=== PATIENT | female | born 1995 | race African-American/Black ===

== ENCOUNTER 2017-10-29 23:10 | Emergency (ER) | payer SELFPAY ==
[~2017-10-29] VITALS: Ht 170.2 cm; Wt 89.5 kg
[2017-10-29 23:15] VITALS: BP 137/70; PULSE 102; RESP 17; TEMP 98.3; O2SAT 100
[2017-10-29 23:36] VITALS: BP 119/69; PULSE 84; RESP 18; O2SAT 98
--- NOTE | 2017-10-29 23:42 | PD ---
HPI Chief Complaint: Headache Time Seen by Provider: 23:41 Travel History International Travel<30 days: No Contact w/Intl Traveler<30days: No Traveled to known affect area: No History of Present Illness HPI Patient comes in complaining of some associated nausea, discoloration to her urine, frequency, urgency, and some painful urination as well. Patient also states that she has been having unprotected intercourse and that she may also be . While she was telling me about all these different symptoms the patient did state that she also also been having on and off mild headaches are not affecting her vision, not associated with fevers, not associated with any neck pain or neck stiffness, also not associated with any chest pain/flank pain/ back pain/abdominal pain/vaginal bleeding/vaginal discharge/runny nose/cough/ sore throat. States allergy to amoxicillin Past medical history significant for only marijuana use PFSH Past Medical History Medical History: Denies Significant Hx Tetanus Vaccination: Unknown ?: Unknown LMP: unknown Past Surgical History Surgical History: No Previous Surgery Social History Alcohol Use: No Tobacco Use: No Substance Use: Yes (marijuana) Allergies-Medications (Allergen,Severity, Reaction): Coded Allergies: amoxicillin (Verified Allergy, Unknown, 10/29/17) Reported Meds & Prescriptions Reported Meds & Active Scripts Active No Active Prescriptions or Reported Medications Review of Systems General / Constitutional: No: Fever Eyes: No: Visual changes HENT: Positive: Headaches Cardiovascular: No: Chest Pain or Discomfort Respiratory: No: Shortness of Breath Gastrointestinal: Positive: Nausea, No: Abdominal Pain Genitourinary: Positive: Urgency, Frequency, Dysuria, Hematuria Musculoskeletal: No: Pain Skin: No Rash Neurologic: No: Weakness Psychiatric: No: Depression Endocrine: No: Polydipsia Hematologic/Lymphatic: No: Easy Bruising Physical Exam Narrative GENERAL: SKIN: Warm and dry. HEAD: Atraumatic. Normocephalic. EYES: Pupils equal and round. No scleral icterus. No injection or drainage. ENT: No nasal bleeding or discharge. Mucous membranes pink and moist. NECK: Trachea midline. No JVD. CARDIOVASCULAR: Regular rate and rhythm. RESPIRATORY: No accessory muscle use. Clear to auscultation. Breath sounds equal bilaterally. GASTROINTESTINAL: Abdomen soft, non-tender, nondistended. MUSCULOSKELETAL: Extremities without clubbing, cyanosis, or edema. No obvious deformities. NEUROLOGICAL: Awake and alert. No obvious cranial nerve deficits. Motor grossly within normal limits. Five out of 5 muscle strength in the arms and legs. Normal speech. PSYCHIATRIC: Appropriate mood and affect; insight and judgment normal. Data Data Last Documented VS Vital Signs Date Time Temp Pulse Resp B/P (MAP) Pulse Ox O2 Delivery O2 Flow Rate FiO2 10/29/17 23:36 84 18 119/69 (86) 98 Room Air 10/29/17 23:15 98.3 Orders Orders Ed Urine Pregnancytest Poc (10/29/17 23:43) Urinalysis - C+S If Indicated (10/29/17 23:48) Ondansetron Odt (Zofran Odt) (10/30/17 00:00) Urine Culture (10/29/17 23:54) Nitrofurantoin Monohyd Macrocr (Macrobid (10/30/17 00:30) Labs Laboratory Tests Test 10/29/17 23:54 Urine Color DARK-YELLOW Urine Turbidity HAZY Urine pH 6.0 Urine Specific Rebuck 1.025 Urine Protein 30 mg/dL Urine Glucose (UA) NEG mg/dL Urine Ketones 10 mg/dL Urine Occult Blood NEG Urine Nitrite NEG Urine Bilirubin NEG Urine Urobilinogen 8.0 MG/DL Urine Leukocyte Esterase LARGE Urine RBC 11 /hpf Urine WBC 13 /hpf Urine Squamous Epithelial Cells 22 /hpf Urine Calcium Oxalate Crystals RARE /hpf Urine Bacteria OCC /hpf Urine Mucus FEW /lpf Microscopic Urinalysis Comment CULTURE INDICATED MDM Medical Decision Making Medical Screen Exam Complete: Yes Emergency Medical Condition: Yes Medical Record Reviewed: Yes Differential Diagnosis UTI versus versus vaginitis versus tension headache versus metabolic headache Narrative Course Clinically the patient did not have any photophobia, had no evidence of any neurological findings, GCS is 15, negative Brudzinski's and negative Kernig sign. Patient's test was positive at the bedside UA consistent with a UTI Due to the patient's and lack of any neurological findings risks versus benefit ratio is is not in our favor, the patient will be treated with antibiotic, given a few doses of Zofran and referred to [facility] for further evaluation and follow-up of her which is newly diagnosed. Diagnosis Primary Impression: newly diagnosed Additional Impression: UTI Referrals: [facility] FOR FURTHER CARE OF YOUR Patient Instructions: First Trimester (ED), General Instructions, Urinary Tract Infection in Women (DC) Scripts Ondansetron Odt (Zofran Odt) 4 Mg Tab 4 MG SL Q6HR Y for Nausea/Vomiting, #12 TAB 0 Refills Prov: Yohannes Hernandez MD 10/30/17 Nitrofurantoin Monohydrate Macrocrystals (Macrobid) 100 Mg Capsule 100 MG PO BID for Infection for 10 Days, #20 CAP 0 Refills Prov: Yohannes Hernandez MD 10/30/17 Disposition: 01 DISCHARGE HOME Condition: Stable Yohannes Hernandez MD October 29, 2017 23:42
[2017-10-30] MEDS ORDERED: ONDANSETRON ODT 4 MG TAB PO ONE
[2017-10-30 00:13] LABS: BACTERIA, URINE OCC /hpf; BLOOD, URINE NEG (NEG); CALCIUM OXALATE CRYSTALS,URINE RARE /hpf; GLUCOSE,URINE NEG (NEG); KETONE, URINE 10 mg/dL (NEG); MUCUS URINE FEW /lpf (OCC); NITRITE,URINE NEG (NEG); SQUAMOUS EPITHELIAL CELL URINE 22 /hpf (0-5); URINE COLOR DARK-YELLOW (YELLW/STRAW); URINE LEUKOCYTE ESTERASE LARGE (NEG)
[2017-10-30 00:16] LABS: BILIRUBIN, URINE NEG (NEG)
[2017-10-30] MEDS ORDERED: NITROFURANTOIN MONOHYD MACROCR 100 MG CAP PO ONE (00:30)
[2017-10-30] MEDS ORDERED: MACR100C2 PO (00:47)
[2017-10-30] MEDS ORDERED: ZOFR4TAB3 SL (00:47)
== END 2017-10-30 01:16 | disposition home or self-care (01) ==
LOC: NEPC 23:10
DX: O23.40 Unspecified infection of urinary tract in pregnancy, unspecified trimester (principal); Z3A.00 Weeks of gestation of pregnancy not specified
CPT/HCPCS: 81001; 84703; 87086; 99284

== ENCOUNTER 2017-11-29 15:34 | Emergency (ER) | payer OTHER ==
[~2017-11-29] VITALS: Ht 175.3 cm; Wt 99.0 kg
[~2017-11-29 15:34] MED LIST: MACR100C2 PO; ZOFR4TAB3 SL
[2017-11-29] MEDS ORDERED: SODIUM CHLOR 0.9% 1000 ML INJ 1,000 ML IV ONE (15:40)
--- NOTE | 2017-11-29 15:40 | PD ---
HPI Chief Complaint: Nausea and vomiting and abdominal pain, severe headache, 1 month . Time Seen by Provider: 15:40 Travel History International Travel<30 days: No Contact w/Intl Traveler<30days: No History of Present Illness HPI 22-year-old -[place] female brought in by ambulance with reports of 1 month known , with nausea, vomiting, abdominal pain, and severe headache since last night. Patient states her last menstrual period was August 09. Patient denies fever, chills, or other symptoms. Patient has no history of migraines or headaches in the past. Patient denies any vaginal bleeding or discharge. She denies dysuria. Abdominal pain is rated as a 7 out of 10. Headache is 10 out of 10. Patient is unable to keep anything down since last night. She has no chest pain or shortness of breath. She is allergic to amoxicillin. Patient was noted to have a blood sugar of 54 in the rig, and she was given 1 amp of glucose with a recurrent blood sugar of 250 recorded by EMS. [facility] Social History Alcohol Use: No Tobacco Use: No Substance Use: Yes (marijuana) Allergies-Medications (Allergen,Severity, Reaction): Coded Allergies: amoxicillin (Verified Allergy, Unknown, 11/29/17) Reported Meds & Prescriptions Reported Meds & Active Scripts Active No Active Prescriptions or Reported Medications Review of Systems Except as stated in HPI: all other systems reviewed are Neg General / Constitutional: No: Fever, Chills Eyes: No: Visual changes HENT: Positive: Headaches, No: Vertigo, Lightheadedness, Sore Throat, Rhinitis , Rhinorrhea, Congestion, Nosebleed, Neck Stiffness, Neck Pain, Dental Difficulties, Earache Cardiovascular: No: Chest Pain or Discomfort Respiratory: No: Shortness of Breath Gastrointestinal: Positive: Nausea, Vomiting, Abdominal Pain, No: Diarrhea Genitourinary: No: Urgency, Frequency, Dysuria, Decreased Urinary Output, Pelvic Pain, Flank Pain, Vaginal Bleeding Musculoskeletal: No: Pain Skin: No Rash Neurologic: No: Weakness Psychiatric: No: Depression Endocrine: No: Polydipsia Hematologic/Lymphatic: No: Easy Bruising Physical Exam Narrative GENERAL: Patient appears in moderate to severe distress. Patient is visibly tearful. SKIN: Warm and dry. Normal color. Normal turgor HEAD: Atraumatic. Normocephalic. Nontender with palpation. EYES: Pupils equal and round. No scleral icterus. No injection or drainage. ENT: No nasal bleeding or discharge. Mucous membranes pink and moist. Pharynx is clear. Airways patent. NECK: Trachea midline. No JVD. Supple nontender. CARDIOVASCULAR: Regular rate and rhythm. RESPIRATORY: No accessory muscle use. Clear to auscultation. Breath sounds equal bilaterally. GASTROINTESTINAL: Abdomen soft, diffusely tender without specific point tenderness or rebound, nondistended. Hepatic and splenic margins not palpable. MUSCULOSKELETAL: Extremities without clubbing, cyanosis, or edema. No obvious deformities. NEUROLOGICAL: Awake and alert. No obvious cranial nerve deficits. Motor grossly within normal limits. Five out of 5 muscle strength in the arms and legs. Normal speech. PSYCHIATRIC: Appropriate mood and affect; insight and judgment normal. Data Data Last Documented VS Vital Signs Date Time Temp Pulse Resp B/P (MAP) Pulse Ox O2 Delivery O2 Flow Rate FiO2 11/29/17 15:46 98.0 68 30 139/97 (111) 100 Room Air Orders Orders Beta Hcg (Quant/Titer) (11/29/17 15:40) Complete Blood Count With Diff (11/29/17 15:40) Comprehensive Metabolic Panel (11/29/17 15:40) Complete Rh (11/29/17 15:40) Urinalysis - C+S If Indicated (11/29/17 15:40) Iv Access Insert/Monitor (11/29/17 15:40) Ecg Monitoring (11/29/17 15:40) Sodium Chloride 0.9% Flush (Ns Flush) (11/29/17 15:45) Sodium Chlor 0.9% 1000 Ml Inj (Ns 1000 M (11/29/17 15:40) Ondansetron Odt (Zofran Odt) (11/29/17 15:45) Prothrombin Time / Inr (Pt) (11/29/17 15:40) Act Partial Throm Time (Ptt) (11/29/17 15:40) Ct Brain W/O Iv Contrast(Rout) (11/29/17 15:40) Diphenhydramine Inj (Benadryl Inj) (11/29/17 15:45) Metoclopramide Inj (Reglan Inj) (11/29/17 15:45) Morphine Inj (Morphine Inj) (11/29/17 15:45) Labs Laboratory Tests Test 11/29/17 15:45 11/29/17 19:45 White Blood Count 6.2 TH/MM3 Red Blood Count 3.91 MIL/MM3 Hemoglobin 12.0 GM/DL Hematocrit 34.4 % Mean Corpuscular Volume 88.0 FL Mean Corpuscular Hemoglobin 30.6 PG Mean Corpuscular Hemoglobin Concent 34.8 % Red Cell Distribution Width 13.1 % Platelet Count 202 TH/MM3 Mean Platelet Volume 8.8 FL Neutrophils (%) (Auto) 66.5 % Lymphocytes (%) (Auto) 26.6 % Monocytes (%) (Auto) 5.0 % Eosinophils (%) (Auto) 1.1 % Basophils (%) (Auto) 0.8 % Neutrophils # (Auto) 4.1 TH/MM3 Lymphocytes # (Auto) 1.6 TH/MM3 Monocytes # (Auto) 0.3 TH/MM3 Eosinophils # (Auto) 0.1 TH/MM3 Basophils # (Auto) 0.1 TH/MM3 CBC Comment DIFF FINAL Differential Comment Prothrombin Time 11.0 SEC Prothromb Time International Ratio 1.1 RATIO Activated Partial Thromboplast Time 28.7 SEC Blood Urea Nitrogen 6 MG/DL Creatinine 0.64 MG/DL Random Glucose 151 MG/DL Total Protein 7.3 GM/DL Albumin 3.4 GM/DL Calcium Level 9.0 MG/DL Alkaline Phosphatase 49 U/L Aspartate Amino Transf (AST/SGOT) 13 U/L Alanine Aminotransferase (ALT/SGPT) 20 U/L Total Bilirubin 0.2 MG/DL Sodium Level 136 MEQ/L Potassium Level 3.4 MEQ/L Chloride Level 103 MEQ/L Carbon Dioxide Level 19.5 MEQ/L Anion Gap 14 MEQ/L Estimat Glomerular Filtration Rate 139 ML/MIN Human Chorionic Gonadotropin, Quant 72267 MIU/ML Urine Color Straw Urine Turbidity CLEAR Urine pH 7.0 Urine Specific Thurston 1.003 Urine Protein NEG mg/dL Urine Glucose (UA) 50 mg/dL Urine Ketones TRACE mg/dL Urine Occult Blood NEG Urine Nitrite NEG Urine Bilirubin NEG Urine Urobilinogen LESS THAN 2 mg/dL Urine Leukocyte Esterase NEG Urine WBC LESS THAN 1 /hpf Urine Squamous Epithelial Cells 2 /hpf Microscopic Urinalysis Comment CULT NOT INDICATED MDM Medical Decision Making Medical Screen Exam Complete: Yes Emergency Medical Condition: Yes Differential Diagnosis Migraine. Intracranial bleed. Abdominal pain. Ectopic . Nausea and vomiting. Dehydration. Narrative Course Patient is in pain but appears to be medically stable at time of exam. IV access is obtained, and labs are ordered including CBC, CMP, beta hCG coagulation studies and urinalysis. Medications are ordered including 10 mg Reglan IV, 4 mg morphine IV, 4 mg Zofran p.o., 50 mg diphenhydramine IV. Patient is given a bolus of 1000 mL of normal saline. Ultrasound of the pelvis is ordered to rule out ectopic CT of the brain is ordered as the patient reports worst headache of her life. CBC is unremarkable. History show potassium 3.4, carbon dioxide is 19.5, BUN is 6, creatinine is normal 0.64 glucose is 151 [place] [address]. Ultrasound showed intrauterine estimated to be 14 weeks 1 day. Patient stated that her pain did not improve with the above treatment, therefore CT of the head is ordered to rule out intracranial bleed. Patient is shielded. CT is unremarkable for acute process. Urinalysis is unremarkable. Patient is felt stable for discharge home. Patient will be given Zofran 4 mg every 6 hours as needed #20. Patient can take Tylenol as well as needed. Patient should rest, push fluids, and follow-up with local OB as soon as possible. Diagnosis Primary Impression: Qualified Codes: Z3A.14 - 14 weeks gestation of Additional Impressions: Nausea and vomiting during Headache Qualified Codes: R51 - Headache Referrals: [facility] Head Patient Instructions: General Instructions Additional Instructions: CBC is unremarkable. History show potassium 3.4, carbon dioxide is 19.5, BUN is 6, creatinine is normal 0.64 glucose is 151 [place] [address]. Ultrasound showed intrauterine estimated to be 14 weeks 1 day. Patient stated that her pain did not improve with the above treatment, therefore CT of the head is ordered to rule out intracranial bleed. Patient is shielded. CT is unremarkable for acute process. Urinalysis is unremarkable. Patient is felt stable for discharge home. Patient will be given Zofran 4 mg every 6 hours as needed #20. Patient can take Tylenol as well as needed. Patient should rest, push fluids, and follow-up with local OB as soon as possible. Med/Other Pt SpecificInfo: Prescription(s) given Scripts No Active Prescriptions or Reported Meds Disposition: DISCHARGE HOME Condition: Stable Anthony Portillo Nov 29, 2017 15:40
[2017-11-29] MEDS ORDERED: MORPHINE SULFATE 4 MG/ML INJ IV PUSH ONE (15:45)
[2017-11-29] MEDS ORDERED: diphenhydrAMINE HCL 50 MG/ML VIAL IVP ONE (15:45)
[2017-11-29] MEDS ORDERED: SODIUM CHLORIDE 0.9% FLUSH 10 ML FLUSH IVF PRN (15:45)
[2017-11-29] MEDS ORDERED: METOCLOPRAMIDE HCL 10 MG/2 ML VIAL IVP ONE (15:45)
[2017-11-29] MEDS ORDERED: ONDANSETRON ODT 4 MG TAB PO ONE (15:45)
[2017-11-29 15:46] VITALS: BP 139/97; PULSE 68; RESP 30; TEMP 98; O2SAT 100
[2017-11-29 16:04] LABS: AUTOMATED NEUTROPHIL # 4.1 TH/MM3 (1.8-7.7); BASOPHIL # 0.1 TH/MM3 (0-0.2); BASOPHIL % 0.8 % (0.0-2.0); EOSINOPHIL # 0.1 TH/MM3 (0-0.4); EOSINOPHIL % 1.1 % (0.0-4.0); HEMATOCRIT 34.4 % (35.0-46.0); LYMPH % 26.6 % (9.0-44.0); LYMPHOCYTE # 1.6 TH/MM3 (1.0-4.8); MEAN CORPUSCULAR HEMOGLOBIN 30.6 PG (27.0-34.0); MEAN CORPUSCULAR HGB CONC 34.8 % (32.0-36.0); MEAN PLATELET VOLUME 8.8 FL (7.0-11.0); MONOCYTE # 0.3 TH/MM3 (0-0.9); NEUT % 66.5 % (16.0-70.0); PLATELET COUNT 202 TH/MM3 (150-450); RED BLOOD COUNT 3.91 MIL/MM3 (4.00-5.30); RED CELL DISTRIBUTION WIDTH 13.1 % (11.6-17.2); WHITE BLOOD COUNT 6.2 TH/MM3 (4.0-11.0)
[2017-11-29 16:18] LABS: INTERNATIONAL NORMALIZED RATIO 1.1 RATIO
[2017-11-29 16:20] LABS: ALBUMIN 3.4 GM/DL (3.4-5.0); ALT (GPT) 20 U/L (10-53); AST (GOT) 13 U/L (15-37); BICARBONATE 19.5 MEQ/L (21.0-32.0); BLOOD UREA NITROGEN 6 MG/DL (7-18); CHLORIDE 103 MEQ/L (98-107); CREATININE 0.64 MG/DL (0.50-1.00); GLOMERULAR FILTRATION RATE 139 ML/MIN (>89); GLUCOSE,RANDOM 151 MG/DL (74-106); SODIUM (NA) 136 MEQ/L (136-145)
[2017-11-29 16:37] LABS: ALKALINE PHOSPHATASE 49 U/L (45-117); TOTAL BILIRUBIN ADULT 0.2 MG/DL (0.2-1.0); TOTAL PROTEIN 7.3 GM/DL (6.4-8.2)
--- NOTE | 2017-11-29 19:09 | RADRPT ---
EXAM DATE: 11/29/2017 6:45 PM EDT AGE/SEX: 22 years / Female INDICATIONS: Severe headache CLINICAL DATA: This is the patient's initial encounter. Patient reports that signs and symptoms have been present for 1 day and indicates a pain score of 8/10. MEDICAL/SURGICAL HISTORY: None. None. RADIATION DOSE: 38.52 CTDI (mGy) COMPARISON: No prior exams available for comparison. TECHNIQUE: CT of the head without contrast. Using automated exposure control and adjustment of the mA and/or kV according to patient size, radiation dose was kept as low as reasonably achievable to ob tain optimal diagnostic quality images. DICOM format image data is available electronically for revi ew and comparison. FINDINGS: Cerebrum: The ventricles are normal. No midline shift, mass lesion, hemorrhage or acute infarction. No extraaxial fluid collections are seen. Posterior Fossa: The cerebellum and brainstem demonstrate no acute abnormality. The 4th ventricle is midline. The cerebellopontine angle is within normal limits. Extracranial: The visualized sinuses are clear. Skull: The calvaria is intact. No skull fracture. CONCLUSION: 1. Negative noncontrast head CT. Electronically signed by: Troy Arellano MD 11/29/2017 7:08 PM EDT
[2017-11-29 20:11] LABS: BILIRUBIN, URINE NEG (NEG); BLOOD, URINE NEG (NEG); GLUCOSE,URINE 50 mg/dL (NEG); KETONE, URINE TRACE mg/dL (NEG); NITRITE,URINE NEG (NEG); SQUAMOUS EPITHELIAL CELL URINE 2 /hpf (0-5); URINE COLOR Straw (YELLW/STRAW); URINE LEUKOCYTE ESTERASE NEG (NEG)
[2017-11-29] MEDS ORDERED: ZOFR4TAB PO (20:16)
== END 2017-11-29 20:30 | disposition home or self-care (01) ==
LOC: NEPC 15:34
DX: O21.9 Vomiting of pregnancy, unspecified (principal); O26.892 Other specified pregnancy related conditions, second trimester; R51 Headache; R10.9 Unspecified abdominal pain; Z3A.14 14 weeks gestation of pregnancy
CPT/HCPCS: 70450; 80053; 81001; 84702; 85025; 85610; 85730; 86901; 96361; 96374; 96375; 99285; J1200; J2270; J2765; J7030

== ENCOUNTER 2018-05-03 13:51 | Inpatient (IN) ==
--- NOTE | 2018-05-03 14:21 | P.HPOB ---
History of Present Illness Primary Care Physician: No Primary Care Physician Chief Complaint: induction History of Present Illness: 23yo at 38/1 weeks gestation presenting for induction due to IUGR. She has no complaints. No contractions, no vaginal bleeding, no LOF, she is feeling the baby move. PMH none PSH D&C Meds None Allergies Amoxicillin- facial swelling Social hx Lives with her mother Baby will be adopted by another family Denies alcohol, tobacco, or illicit drug use Weeks Gestation:: 38 - Inpatient Certification I certify that the inpatient services were ordered in accordance with Medicare regulations governing the order. This includes certification that hospital inpatient services are reasonable and necessary and in the case of services not specified as inpatient-only under 42 CFR 419.22(n), that they are appropriately provided as inpatient services in accordance to with the 2-midnight benchmark under 43 CFR 412.3(e) Review of Systems Constitutional: Denies chills, Denies fever(s) Cardiovascular: Denies chest pain Respiratory: Denies shortness of breath Gastrointestinal: Denies abdominal pain Genitourinary: Denies abnormal vaginal bleeding PMFSH - History History Provided By: Patient - Tobacco History Smoking Status: Never smoker - Alcohol History How Often Do You Have a Drink Containing Alcohol: Never - Substance Use History Substance History: Active Abuse (MJ) - Travel History History of Recent Travel: No Medications and Allergies Allergies Allergy/AdvReac Type Severity Reaction Status Date / Time amoxicillin Allergy Unknown Verified 11/29/17 15:41 Exam Narrative: GENERAL: Well-nourished, well-developed patient. SKIN: Warm and dry. HEAD: Normocephalic and atraumatic. EYES: No scleral icterus. No injection or drainage. ENT: No nasal drainage noted. Mucous membranes pink. Airway patent. NECK: Supple, trachea midline. No JVD. CARDIOVASCULAR: Regular rate and rhythm without murmurs, gallops, or rubs. RESPIRATORY: Breath sounds equal bilaterally. No accessory muscle use. ABDOMEN/GI: Abdomen soft, non-tender, bowel sounds present, no rebound, no guarding Gravid GENITOURINARY: External Genitalia: intact and normal in appearance Cervix: posterior Dilatation: 1 Effacement: 50 Station: -2 Presentation: vertex Membranes: intact Uterine Contractions: none FHT's: Category: 2 Baseline: 140s Reactive: yes Variability: moderate Decels: some variable decelerations EXTREMITIES: No cyanosis or edema. BACK: Nontender without obvious deformity. No CVA tenderness. NEUROLOGICAL: Awake and alert. Motor and sensory grossly within normal limits. Five out of 5 muscle strength in all muscle groups. Normal speech. Results - Labs CBC & Chem 7: 05/03/18 15:00 Caprini VTE Risk Assessment Caprin VTE Risk Assessment: Moderate/High Risk (score >= 2) Caprini Risk Assessment Model: Point Value = 1 Point Value = 2 Point Value = 3 Point Value = 5 Age 41-60 Minor surgery BMI > 25 kg/m2 Swollen legs Varicose veins or History of unexplained or recurrent spontaneous Oral contraceptives or hormone replacement Sepsis (< 1 month) Serious lung disease, including pneumonia (< 1 month) Abnormal pulmonary function Acute myocardial infarction Congestive heart failure (< 1 month) History of inflammatory bowel disease Medical patient at bed rest Age 61-74 Arthroscopic surgery Major open surgery (> 45 min) Laparoscopic surgery (> 45 min) Malignancy Confined to bed (> 72 hours) Immobilizing plaster cast Central venous access Age >= 75 History of VTE Family history of VTE Factor V Leiden Prothrombin [id number] Lupus anticoagulant Anticardiolipin antibodies Elevated serum homocysteine Heparin-induced thrombocytopenia Other congenital or acquired thrombophilia Stroke (< 1 month) Elective arthroplasty Hip, pelvis, or leg fracture Acute spinal cord injury (< 1 month) Prophylaxis Regimen: Total Risk Factor Score Risk Level Prophylaxis Regimen 0-1 Low Early ambulation 2 Moderate Order ONE of the following: *Sequential Compression Device (SCD) *Heparin 5000 units SQ BID 3-4 Higher Order ONE of the following medications: *Heparin 5000 units SQ TID *Enoxaparin/Lovenox 40 mg SQ daily (WT < 150 kg, CrCl > 30 mL/min) *Enoxaparin/Lovenox 30 mg SQ daily (WT < 150 kg, CrCl > 10-29 mL/min) *Enoxaparin/Lovenox 30 mg SQ BID (WT < 150 kg, CrCl > 30 mL/min) AND/OR *Sequential Compression Device (SCD) 5 or more Highest Order ONE of the following medications: *Heparin 5000 units SQ TID (Preferred with Epidurals) *Enoxaparin/Lovenox 40 mg SQ daily (WT < 150 kg, CrCl > 30 mL/min) *Enoxaparin/Lovenox 30 mg SQ daily (WT < 150 kg, CrCl > 10-29 mL/min) *Enoxaparin/Lovenox 30 mg SQ BID (WT < 150 kg, CrCl > 30 mL/min) AND *Sequential Compression Device (SCD) Assessment and Plan - Diagnosis (1) Encounter for induction of labor Code(s): Z34.90 - Encounter for supervision of normal , unspecified, unspecified trimester Status: Acute Plan: 23yo at 38/1 weeks gestation being induced for IUGR as recommended by MFM. FHT: Category 2 with good variability, variable decelerations seen on monitor, will reposition patient and reassess for improvement -spoke with pt's nurse and the concerning findings on the FHT were while pt was sitting up signing her consents -FHT is now Category 1 and reassuring Cervix: 1cm/50%/-2 Cervidil for induction, due pt not tolerating cervical exams. WDW Dr. Castillo - Plan Per MFM report on 05/02, IOL now recommended at 39wks for IUGR with efw 6% at 35wks (04/14) and Normal MCA flow and Umbilical artery flow on 05/02. Patient advised that delivery no longer recommended at 38wks per MFM report from 05/02. Plan for IOL next Wednesday night at 39wks unless otherwise indicated per MFM. Case discussed with OB hospitalist fire investigation lieutenant who agrees with plan. RNST today, + moment, Neg ctx. Patient will see Dr. Horn on Wednesday at the clinic for a routine visit, cont. 2x/wk AP testing with MFM until delivery. -Corinne Castillo M.D. (faculty)
[2018-05-03] MEDS ORDERED: Oxytocin 30 Units/500ml Premix 30 UNITS/500 ML BAG IV.SIG ONE (14:22)
[2018-05-03] MEDS ORDERED: fentaNYL Citrate Inj 100 MCG/2 ML Ampul IV.PUSH PRN ×2 (14:22)
[2018-05-03] MEDS ORDERED: Naloxone Inj 0.4 MG/ML Vial IV.PUSH PRN (14:22)
[2018-05-03] MEDS ORDERED: Sodium Chlor 0.9% Inj 500 ML IV.SIG PRN (14:22)
[2018-05-03] MEDS ORDERED: Sod Chloride 0.9% Inj 1,000 ML IV.CONT PRN (14:22)
[2018-05-03] MEDS ORDERED: Citric Acid/Sodium Citrate Liq 30 ML UDC PO SCH (14:30)
[2018-05-03 15:44] LABS: Baso # (Auto) 0.1 th/mm3 (0.0-0.2); Baso % (Auto) 0.7 % (0.0-2.0); Eos # (Auto) 0.1 th/mm3 (0.0-0.4); Hematocrit 34.6 % (35.0-46.0); Hemoglobin 11.8 gm/dL (11.6-15.3); Lymph # (Auto) 1.8 th/mm3 (1.0-4.8); Lymph % (Auto) 23.7 % (9.0-44.0); Mean Corpuscular HGB Conc 34.1 % (32.0-36.0); Mean Corpuscular Hemoglobin 30.8 pg (27.0-34.0); Mean Corpuscular Volume 90.5 fL (80.0-100.0); Mean Platelet Volume 10.3 fL (7.0-11.0); Mono # (Auto) 0.5 th/mm3 (0.0-0.9); Mono % (Auto) 6.7 % (0.0-8.0); Neut # (Auto) 5.2 th/mm3 (1.8-7.7); Neut % (Auto) 67.9 % (16.0-70.0); Platelet Count 181 th/mm3 (150-450); Red Blood Count 3.83 mil/mm3 (4.00-5.30); Red Cell Distribution Width 13.3 % (11.6-17.2); White Blood Count 7.6 th/mm3 (4.0-11.0)
[2018-05-03 15:48] LABS: Amorphous Sediment,Urine Few /hpf; Bacteria,Urine Few /hpf; Bilirubin,Urine Negative (Negative); Clarity,Urine Hazy (Clear); Color,Urine Yellow (Yellw/Straw); Glucose,Urine (UA) Negative (Negative); Leukocyte Esterase,Urine Moderate (Negative); Mucus,Urine Few /lpf (Occasional); Nitrite,Urine Negative (Negative); Specific Gravity,Urine 1.005 (1.002-1.035); Squamous Epithelial Cell,Urine 13 /hpf (0-5)
[2018-05-03 15:53] LABS: Amphetamine Urine With Conf Neg (Neg); Benzodiazepine Urine With Conf Neg (Neg); Cocaine Urine With Conf Neg (Neg); Opiates Urine With Conf Neg (Neg)
[2018-05-03 16:01] LABS: Cannabinoid Urine With Conf Neg (Neg)
[2018-05-03] MEDS ORDERED: Influenza (Quadrivalent) Vaccine 0.5 ML Syringe IM ONE (17:15)
[2018-05-03 19:24] LABS: Hemoglobin A1c 4.8 % (4.3-6.0)
--- NOTE | 2018-05-04 08:25 | P.OBLABOR ---
Subjective Interval history: Pt seen and examined this morning. She is comfortable. Not feeling any contractions as of yet. Objective Vital Signs: Vital Signs - 8 hr 05/04/18 01:00 05/04/18 02:48 05/04/18 03:19 Temperature 98.4 F Pulse Rate 81 Respiratory Rate 18 18 Blood Pressure 120/63 05/04/18 05:00 05/04/18 06:00 05/04/18 07:00 Temperature Pulse Rate Respiratory Rate 18 18 18 Blood Pressure Objective: Pelvic Exam: Cervix: posterior Dilatation: 2cm Effacement: 50% Station: -2 Presentation: vertex Membranes: intact Uterine Contractions: none FHT's: Category: 1 Baseline: 120s Reactive: yes Variability: moderate Decels: none Assessment and Plan - Diagnosis (1) Encounter for induction of labor Code(s): Z34.90 - Encounter for supervision of normal , unspecified, unspecified trimester Status: Acute Plan: 23yo at 38/2 weeks gestation induced for IUGR as recommended by M. FHT:Category 1, reassuring Cervix: 2cm/50%/-2 Cervidil removed at 0700. Will allow pt to eat breakfast and shower. Then will strip membranes, AROM, and start Pitocin. WDW Dr. Stanley, Dr. Pérez - Attending Attestation The exam, history, and the medical decision-making described in the above note were completed with the assistance of the resident physician. I reviewed and agree with the findings presented. I attest that I had a [id number] encounter with the patient on the same day, and personally performed and documented my assessment and findings in the medical record. Resident discussed plan with overnight laborist in the AM, for patient to shower and eat breakfast to get ready for AROM and membrane stripping. I accompanied Dr Horn for this and she was ruptured around 1100 AM, she was very uncomfortable during this check. FHT Viviane after AROM. Will plan to start pitocin if not galileo well after AROM and can have an epidural once she is regularly galileo and making cervical change.
--- NOTE | 2018-05-04 13:39 | P.OBLABOR ---
Subjective Interval history: Pt seen and examined. Pt states that she is doing well and is comfortable. Is not feeling any contractions as of yet. Objective Vital Signs: Vital Signs - 8 hr 05/04/18 06:00 05/04/18 07:00 05/04/18 10:15 Pulse Rate 109 H Respiratory Rate 18 18 Blood Pressure 132/56 L Objective: Pelvic Exam: Cervix: posterior Dilatation: 3 Effacement: 60 Station: -2 Presentation: vertex Membranes: ruptured Uterine Contractions: none FHT's: Category: 1 Baseline: 120s Reactive: yes Variability: moderate Decels: none Assessment and Plan - Diagnosis (1) Encounter for induction of labor Code(s): Z34.90 - Encounter for supervision of normal , unspecified, unspecified trimester Status: Acute Plan: 23yo at 38/2 weeks gestation induced for IUGR as recommended by MFM. FHT:Category 1, reassuring Cervix: 3cm/60%/-2 Cervidil removed at 0700. Membranes stripped and AROM of clear fluid at [address] Pérez
[2018-05-04] MEDS ORDERED: Oxytocin 30 Units/500ml Premix 30 UNITS/500 ML BAG IV.SIG PRN (13:41)
[2018-05-04] MEDS ORDERED: fentaNYL 2MCG-Bupiv 0.125% Epi 150 ML EPIDURAL ONE (16:00)
[2018-05-04] MEDS ORDERED: fentaNYL Citrate Inj 100 MCG/2 ML Ampul ONE (17:17)
--- NOTE | 2018-05-04 17:34 | P.OBLABOR ---
Subjective Interval history: Pt seen and examined. While getting her epidural, pt experienced the feeling of being hot, became sleepy, dizzy, and hypotension. She is feeling better and like herself again. Is now comfortable and without pain. Objective Vital Signs: Vital Signs - 8 hr 05/04/18 10:15 05/04/18 14:55 05/04/18 15:34 Pulse Rate 109 H 114 H 89 Blood Pressure 132/56 L 115/89 112/93 H 05/04/18 16:10 Pulse Rate 100 H Blood Pressure 142/77 H Objective: Pelvic Exam: Cervix: posterior Dilatation: 6cm Effacement: 70% Station: -2 Presentation: vertex Membranes: ruptured Uterine Contractions: q4-6min FHT's: Category: 1 Baseline: 110s-120s Reactive: yes Variability: moderate Decels: none Assessment and Plan - Diagnosis (1) Encounter for induction of labor Code(s): Z34.90 - Encounter for supervision of normal , unspecified, unspecified trimester Status: Acute Plan: 23yo at 38/2 weeks gestation induced for IUGR as recommended by [facility]. FHT:Category 1, reassuring Cervix: 6cm/70%/-2 Cervidil removed at 0700. Membranes stripped and AROM of clear fluid at 1106 Pitocin started ~1500 Epidural given at 1631 by Cholo LIU, bolus of lidocaine resulted in hypotensive episode to 90s/50s. Pt was given high flow O2 by NRB mask and ephedrine. She was assessed by Dr. Jensen, the anesthesiologist. She then became normotensive and returned to her normal state. Baby also tolerated the episode well and FHT is category 1 at this time. -Will continue to monitor for any further episodes. WDW Dr. Pérez
[2018-05-04] MEDS ORDERED: fentaNYL Citrate Inj 100 MCG/2 ML Ampul EPIDURAL ONE (17:54)
[2018-05-04] MEDS ORDERED: fentaNYL 2MCG-Bupiv 0.125% Epi 150 ML EPIDURAL PRN ×2 (18:23→18:30)
--- NOTE | 2018-05-04 21:57 | P.OBDELI ---
Weeks Gestation: 38 Medical Induction of Labor: Yes Medical Induction Start Date: 05/03/18 Artificial Rupture of Membrane: Yes Anesthesia: Epidural Episiotomy: none Vaginal Delivery: Normal Presentation: Occiput anterior, Vertex Nuchal Cord: None Delayed Cord Clamping (45 sec): Yes Placenta: Spontaneous delivery Laceration: None Estimated blood loss (mL): 50 : Female Female A Infant Delivery Date: 05/04/18 Delivery Time: 21:40 Weight: 2.73 kg score (1 min): 9 score (5 min): 9
[2018-05-04] MEDS ORDERED: Acetaminophen 325 MG Tablet PO PRN (21:59)
[2018-05-04] MEDS ORDERED: Oxytocin 30 Units/500ml Premix 30 UNITS/500 ML BAG IV.CONT PRN (21:59)
[2018-05-04] MEDS ORDERED: Bisacodyl 10 MG Supp RECTAL PRN (21:59)
[2018-05-04] MEDS ORDERED: Zolpidem Tartrate 5 MG Tablet PO PRN (21:59)
[2018-05-04] MEDS ORDERED: Witch Hazel 50%/Glyderin 12.5% 40 Pad Jar RECTAL PRN (21:59)
[2018-05-04] MEDS ORDERED: Benzocaine 20% Top Spray 60 ML Can TOPICAL PRN (21:59)
--- NOTE | 2018-05-05 08:39 | P.PNOB ---
Subjective Post day: 1 Interval history: day # 1. AFVSS overnight. Pain well-controlled. Decreased lochia. Denies dysuria. No breast tenderness. Appetite good. No nausea or vomiting. + flatus. no bowel movement. Ambulating well. Denies calf pain, shortness of breath, or cough. Otherwise, she is doing well this morning and has no other complaints. Objective Vital Signs/I&O: Vital Signs 05/04/18 10:15 05/04/18 14:55 05/04/18 15:00 Temperature 97.8 F Pulse Rate 109 H 114 H Respiratory Rate 18 Blood Pressure 132/56 L 115/89 05/04/18 15:34 05/04/18 16:10 05/04/18 17:00 Temperature 98.2 F Pulse Rate 89 100 H Respiratory Rate 20 Blood Pressure 112/93 H 142/77 H 05/04/18 17:40 05/04/18 17:50 05/04/18 18:10 Temperature Pulse Rate 85 97 H 83 Respiratory Rate Blood Pressure 139/69 127/73 125/72 05/04/18 18:25 05/04/18 18:35 05/04/18 18:40 Temperature Pulse Rate 90 92 H 93 H Respiratory Rate Blood Pressure 128/82 130/83 05/04/18 18:55 05/04/18 19:01 05/04/18 19:10 Temperature Pulse Rate 95 H 89 106 H Respiratory Rate Blood Pressure 149/76 H 126/86 05/04/18 19:30 05/04/18 19:31 05/04/18 19:50 Temperature 97.8 F Pulse Rate 93 H 113 H 95 H Respiratory Rate 18 Blood Pressure 136/91 H 106/64 113/60 05/04/18 20:00 05/04/18 20:17 05/04/18 20:20 Temperature Pulse Rate 79 114 H 91 H Respiratory Rate 18 Blood Pressure 127/66 127/66 05/04/18 20:30 05/04/18 20:54 05/04/18 21:16 Temperature Pulse Rate 113 H 123 H 118 H Respiratory Rate 18 Blood Pressure 132/89 126/92 H 124/80 05/04/18 21:50 05/04/18 22:01 05/04/18 22:05 Temperature Pulse Rate 108 H 108 H Respiratory Rate 18 18 Blood Pressure 154/86 H 121/76 05/04/18 22:20 05/04/18 22:35 05/04/18 22:49 Temperature 98.5 F Pulse Rate 122 H 118 H Respiratory Rate 18 18 18 Blood Pressure 126/75 110/49 L 05/04/18 23:05 05/04/18 23:30 05/04/18 23:35 Temperature Pulse Rate 114 H 120 H Respiratory Rate 18 18 Blood Pressure 106/46 L 104/40 L 05/05/18 00:00 05/05/18 00:20 05/05/18 08:00 Temperature 97.6 F 98.8 F Pulse Rate 98 H 95 H 94 H Respiratory Rate 18 20 Blood Pressure 115/66 141/73 H 108/59 L Intake & Output 05/04/18 05/05/18 05/05/18 18:59 06:59 18:59 Intake Total 1999 Balance 1999 Weight 106 kg Intake: IV 1999 LR 1000 mL Inj 1,000 ML @ 125 1000 / 1000 mls/hr IV.CONT .Q8H [place] Rx#: [id number] LR 1000 mL Inj 1,000 ML @ 3000 1000 / 1000 mls/hr IV.SIG UNSCH PRN Rx#: [id number] Other: Weight On Admission 106 kg Result Diagrams: 05/03/18 15:00 Objective Remarks: GENERAL: Well-nourished, well-developed patient. CARDIOVASCULAR: Regular rate and rhythm without murmurs, gallops, or rubs. RESPIRATORY: Breath sounds equal bilaterally. No accessory muscle use. ABDOMEN/GI: Abdomen soft, non-tender. Fundus: Firm, non-tender at umbilicus. GENITOURINARY: Light to moderate bleeding. EXTREMITIES: No cyanosis or edema, non-tender, without signs of DVT. Medications and IVs: Active Medications Acetaminophen (Tylenol) 650 mg PO Q4H PRN PRN Reason: PAIN SCALE 1 TO 2 Al Hydroxide/Mg Hydroxide (Milk Of Magn[place] Liq) 30 ml PO Q12H PRN PRN Reason: Mild Constipation Benzocaine (Americaine 20% Top [place]) 1 spray TOPICAL Q4H PRN PRN Reason: For Perineum Discomfort Last Admin: 05/05/18 01:21 Dose: 1 spray Bisacodyl (Dulcolax Supp) 10 mg RECTAL DAILY PRN PRN Reason: SEVERE CONSITIPATION Diphtheria/Pertussis/Tetanus Vacc (Boostrix Vaccine Inj) 0.5 ml IM .ONCE ONE Stop: 05/05/18 16:01 Ephedrine Sulfate (Ephedrine/Ns Syringe) 10 mg IV.PUSH UNSCH PRN PRN Reason: SEE LABEL COMMENTS Stop: 05/05/18 17:54 Last Admin: 05/04/18 16:42 Dose: 10 mg Oxytocin (Pitocin 30 Units/Ns 500 Ml Premix) 30 units in 500 mls @ 2 mls/hr IV.SIG TITRATE PRN; Protocol PRN Reason: For induction of labor Last Admin: 05/04/18 14:52 Dose: 2 milliunit/min, 2 mls/hr Fentanyl/Bupivacaine/Sodium Chlor (Fentanyl 2 Mcg-Bupiv 0.125% Epi) 150 mls @ 12 mls/hr EPIDURAL PRN PRN PRN Reason: for Labor Pain Last Admin: 05/04/18 16:15 Dose: 12 mls/hr Oxytocin (Pitocin 30 Units/Ns 500 Ml Premix) 30 units in 500 mls @ 100 mls/hr IV.CONT UNSCH PRN PRN Reason: Heavy bleeding Ibuprofen (Motrin) 800 mg PO Q8H PRN PRN Reason: For Cramping Lactulose (Lactulose Liq) 30 ml PO DAILY PRN PRN Reason: SEVERE CONSITIPATION Measles/Mumps/Rubella Vaccine Live (M-M-R Ii Vaccine Inj) 0.5 ml SQ .ONCE ONE Stop: 05/05/18 16:01 Miscellaneous Information (Misc Information) 1 each OTHER UNSCH PRN PRN Reason: SEE LABEL COMMENTS Stop: 05/05/18 17:54 Ondansetron HCl (Zofran Inj) 4 mg IV.PUSH Q6H PRN PRN Reason: NAUSEA OR VOMITING Ondansetron HCl (Zofran Odt) 4 mg PO Q6H PRN PRN Reason: NAUSEA OR VOMITING Oxycodone/Acetaminophen (Percocet 5/325 Mg) 1 tab PO Q4H PRN PRN Reason: PAIN SCALE 3 TO 5 Last Admin: 05/05/18 01:20 Dose: 1 tab Oxycodone/Acetaminophen (Percocet 5/325 Mg) 2 tab PO Q4H PRN PRN Reason: PAIN SCALE 6 TO 10 Last Admin: 05/05/18 05:21 Dose: 2 tab Senna/Docusate Sodium (Gina-Colace) 1 tab PO BID [place] Sennosides (Senokot) 17.2 mg PO Q12H PRN PRN Reason: Moderate Constipation Sodium Chloride (Ns Flush) 2 ml IV.FLUSH BID [place] Last Admin: 05/04/18 23:47 Dose: 2 ml Sodium Chloride (Ns Flush) 2 ml IV.FLUSH PRN PRN PRN Reason: FLUSH AFTER USING IV ACCESS Sodium Chloride (Ns Flush) 2 ml IV.FLUSH PRN PRN PRN Reason: FLUSH AFTER USING IV ACCESS Sodium Chloride (Ns Flush) 2 ml IV.FLUSH BID [place] Witch Joy/Glycerin (Tucks Pads) 1 applicatio RECTAL QID PRN PRN Reason: HEMORRHOIDS Last Admin: 05/05/18 01:21 Dose: 1 applicatio Zolpidem Tartrate (Ambien) 5 mg PO HS PRN PRN Reason: SLEEP Assessment and Plan - Diagnosis (1) Vaginal delivery Code(s): O80 - Encounter for full-term uncomplicated delivery Status: Acute Plan: 23 y/o who is PPD# 1 s/p , induced for IUGR as recommended by MFM at 38 /2 weeks gestation. -Continue routine care. -Percocet and Motrin PRN pain. -Encouraged OOB. Advised pelvic rest for 6 wks. -Will need a f/u appt within 6 wks. -Re: ctrl, she would like Depo-Provera. Then an IUD in the future. -D/c tomorrow. wdw Dr. Saavedra (2) Encounter for induction of labor Code(s): Z34.90 - Encounter for supervision of normal , unspecified, unspecified trimester Status: Acute - Attending Attestation The exam, history, and the medical decision-making described in the above note were completed with the assistance of the resident physician. I reviewed and agree with the findings presented. I attest that I had a [id number] encounter with the patient on the same day, and personally performed and documented my assessment and findings in the medical record. She is lying in bed at the time of my exam, reporting no pain, minimal lochia. Reports she is able to ambulate without difficult. Receiving Depo-Provera and flu vaccine today. Discharge plan is likely home tomorrow with [address] up [address]. Horn.
[2018-05-05] MEDS ORDERED: medroxyPROGESTERone Acetate Inj 150 MG/ML Syringe IM ONE (08:43)
[2018-05-05] MEDS: Senna/Docusate Sodium 8.6/50 MG Tablet PO SCH ×2 (08:59→23:58)
[2018-05-05] MEDS ORDERED: Measles/Mumps/Rubella Vaccine Inj 0.5 ML Vial SQ ONE (16:00)
[2018-05-05] MEDS ORDERED: Diphtheria/Tetanus/Pertussis Vaccine Inj 0.5 ML Syringe IM ONE (16:00)
[2018-05-06 02:05] VITALS: RESP 18
[2018-05-06] MEDS ORDERED: medroxyPROGESTERone Acetate Inj 150 MG/ML Syringe IM ONE (05:00)
[2018-05-06 08:41] VITALS: BP 121/69; PULSE 85
[2018-05-06 08:42] VITALS: TEMP 98.4
--- NOTE | 2018-05-06 08:50 | P.PNOB ---
Subjective Post day: 2 Interval history: day # 2. AFVSS overnight. Pain well-controlled. Decreased lochia. Denies dysuria. No breast tenderness. She is feeding the baby via formula. Appetite good. No nausea or vomiting. + flatus. one bowel movement. Ambulating well. Denies calf pain, shortness of breath, or cough. Otherwise, she is doing well this morning and has no other complaints. Objective Vital Signs/I&O: Vital Signs 05/05/18 20:07 05/06/18 08:00 Temperature 98.0 F 98.4 F Pulse Rate 93 H 85 Respiratory Rate 18 18 Blood Pressure 144/87 H 121/69 Result Diagrams: 05/03/18 15:00 Objective Remarks: GENERAL: Well-nourished, well-developed patient. CARDIOVASCULAR: Regular rate and rhythm without murmurs, gallops, or rubs. RESPIRATORY: Breath sounds equal bilaterally. No accessory muscle use. ABDOMEN/GI: Abdomen soft, non-tender. Fundus: Firm, non-tender at umbilicus. GENITOURINARY: Light to moderate bleeding. EXTREMITIES: No cyanosis or edema, non-tender, without signs of DVT. Medications and IVs: Active Medications Acetaminophen (Tylenol) 650 mg PO Q4H PRN PRN Reason: PAIN SCALE 1 TO 2 Last Admin: 05/05/18 22:56 Dose: 650 mg Al Hydroxide/Mg Hydroxide (Milk Of [place]) 30 ml PO Q12H PRN PRN Reason: Mild Constipation Benzocaine (Americaine 20% Top [place]) 1 spray TOPICAL Q4H PRN PRN Reason: For Perineum Discomfort Last Admin: 05/05/18 01:21 Dose: 1 spray Bisacodyl (Dulcolax Supp) 10 mg RECTAL DAILY PRN PRN Reason: SEVERE CONSITIPATION Oxytocin (Pitocin 30 Units/Ns 500 Ml Premix) 30 units in 500 mls @ 2 mls/hr IV.SIG TITRATE PRN; Protocol PRN Reason: For induction of labor Last Admin: 05/04/18 14:52 Dose: 2 milliunit/min, 2 mls/hr Fentanyl/Bupivacaine/Sodium Chlor (Fentanyl 2 Mcg-Bupiv 0.125% Epi) 150 mls @ 12 mls/hr EPIDURAL PRN PRN PRN Reason: for Labor Pain Last Admin: 05/04/18 16:15 Dose: 12 mls/hr Oxytocin (Pitocin 30 Units/Ns 500 Ml Premix) 30 units in 500 mls @ 100 mls/hr IV.CONT UNSCH PRN PRN Reason: Heavy bleeding Ibuprofen (Motrin) 800 mg PO Q8H PRN PRN Reason: For Cramping Last Admin: 05/05/18 22:55 Dose: 800 mg Lactulose (Lactulose Liq) 30 ml PO DAILY PRN PRN Reason: SEVERE CONSITIPATION Ondansetron HCl (Zofran Inj) 4 mg IV.PUSH Q6H PRN PRN Reason: NAUSEA OR VOMITING Ondansetron HCl (Zofran Odt) 4 mg PO Q6H PRN PRN Reason: NAUSEA OR VOMITING Oxycodone/Acetaminophen (Percocet 5/325 Mg) 1 tab PO Q4H PRN PRN Reason: PAIN SCALE 3 TO 5 Last Admin: 05/05/18 01:20 Dose: 1 tab Oxycodone/Acetaminophen (Percocet 5/325 Mg) 2 tab PO Q4H PRN PRN Reason: PAIN SCALE 6 TO 10 Last Admin: 05/05/18 09:48 Dose: 2 tab Senna/Docusate Sodium (Gina-Colace) 1 tab PO BID [facility] Last Admin: 05/05/18 23:58 Dose: Not Given Sennosides (Senokot) 17.2 mg PO Q12H PRN PRN Reason: Moderate Constipation Sodium Chloride (Ns Flush) 2 ml IV.FLUSH BID [facility] Last Admin: 05/05/18 23:57 Dose: Not Given Sodium Chloride (Ns Flush) 2 ml IV.FLUSH PRN PRN PRN Reason: FLUSH AFTER USING IV ACCESS Sodium Chloride (Ns Flush) 2 ml IV.FLUSH PRN PRN PRN Reason: FLUSH AFTER USING IV ACCESS Sodium Chloride (Ns Flush) 2 ml IV.FLUSH BID [facility] Last Admin: 05/05/18 23:57 Dose: Not Given Witch Joy/Glycerin (Tucks Pads) 1 applicatio RECTAL QID PRN PRN Reason: HEMORRHOIDS Last Admin: 05/05/18 01:21 Dose: 1 applicatio Zolpidem Tartrate (Ambien) 5 mg PO HS PRN PRN Reason: SLEEP Assessment and Plan - Diagnosis (1) Vaginal delivery Code(s): O80 - Encounter for full-term uncomplicated delivery Status: Acute Plan: 23 y/o who is PPD# 2 s/p , induced for IUGR as recommended by MFM at 38 /2 weeks gestation. -Continue routine care. -Motrin PRN pain. -Encouraged OOB. Advised pelvic rest for 6 wks. -Will need a f/u appt within 6 wks. -Re: ctrl, she would like Depo-Provera. Then an IUD in the future. -D/c today wdw Dr. Stanley (2) Encounter for induction of labor Code(s): Z34.90 - Encounter for supervision of normal , unspecified, unspecified trimester Status: Acute
[2018-05-06] MEDS: Senna/Docusate Sodium 8.6/50 MG Tablet PO SCH (08:59)
== END 2018-05-06 12:19 | disposition home or self-care (01) ==
LOC: H2E 13:51 → H1EA 05-05 00:28
PROVIDERS: ADMIT Family Medicine; ATTEND Family Medicine